=== PATIENT | female | born 1960 | race Caucasian/White ===

== ENCOUNTER 2019-07-14 10:25 | Emergency (ER) | payer OTHER ==
[~2019-07-14] VITALS: Ht 154.9 cm; Wt 44.6 kg
[2019-07-14 10:57] VITALS: BP 103/59
== END 2019-07-14 14:33 | disposition home or self-care (01) ==
LOC: ED 10:25
DX: Z53.21 Procedure and treatment not carried out due to patient leaving prior to being seen by health care provider (principal)